=== PATIENT | male | born 1970 | race Caucasian/White ===

== ENCOUNTER 2016-07-21 19:04 | Emergency (ER) | payer OTHER ==
--- NOTE | 2016-07-21 19:18 | ERD ---
ER Documentation Chief Complaint Date/Time DATE: 07/21/16 TIME: 19:16 Chief Complaint Meningitis exposure HPI Meningitis exposure today with the patient brought in by EMS provider. There are called and notified that the patient they brought to the ER had in fact meningitis likely bacterial they are here for prophylactic Cipro. ROS All systems reviewed and are negative except as per history of present illness. Medications Home Meds No Active Prescriptions or Reported Meds Allergies Allergies: Coded Allergies: No Known Allergy (Unverified , 07/21/16) FmHx Family History: No coronary disease Physical Exam Physical Exam Const: [] Head: Atraumatic Eyes: Normal Conjunctiva ENT: Normal External Ears, Nose and Mouth. Neck: Full range of motion..~ No meningismus. Resp: Clear to auscultation bilaterally Cardio: Regular rate and rhythm, no murmurs Abd: Soft, non tender, non distended. Normal bowel sounds Skin: No petechiae or rashes Back: No midline or flank tenderness Ext: No cyanosis, or edema Neur: Awake and alert Psych: Normal Mood and Affect Results 24 hrs Current Medications Medications (Trade) Dose Ordered Sig/Opal Route PRN Reason Start Time Stop Time Status Last Admin Dose Admin Ciprofloxacin (Cipro) 500 mg ONCE ONCE PO 07/21/16 19:30 07/21/16 19:31 Procedures/MDM cipro0 Departure Diagnosis: Primary Impression: Meningitis exposure Condition: Stable Patient Instructions: JAYLIN Chirinos DO Jul 21, 2016 19:18
[2016-07-21] MEDS ORDERED: CIPROFLOXACIN 500 MG TAB PO ONE (19:30)
== END 2016-07-21 19:21 | disposition home or self-care (01) ==
LOC: E/R 19:04
DX: Z20.811 Contact with and (suspected) exposure to meningococcus (principal)
CPT/HCPCS: 99283